=== PATIENT | female | born 1955 | race American Indian/Alaskan Native ===

== ENCOUNTER 2017-10-21 13:01 | Outpatient (CLI) | payer OTHER ==
--- NOTE | 2017-10-21 16:25 | XRay Report ---
XRAY LEFT WRIST FOUR VIEWS:10/21/17 13:01:00 CLINICAL: Left wrist pain. FINDINGS: The carpal bones are intact. No fracture or dislocation. The distal radius and ulna are normal. Mild radiocarpal joint arthritis. Mild osteoarthritis at the basal joint and the first MCP joint of the thumb. There is a focal soft tissue bulge at the distal radius. The density is lower than muscle and isointense with fat either a fatty mass or a cyst. IMPRESSION: Mild arthritis. Suspect a fatty mass or cyst of the lateral soft tissues. I suppose a ganglion cyst is also possibility.
== END 2017-10-21 13:02 | disposition home or self-care (01) ==
LOC: SPVIMAG 13:01
PROVIDERS: ATTEND Orthopaedic Surgery
DX: M19.032 Primary osteoarthritis, left wrist (principal); M18.9 Osteoarthritis of first carpometacarpal joint, unspecified